=== PATIENT | male | born 1955 | race Caucasian/White ===

== ENCOUNTER 2023-07-29 13:38 | Inpatient (IN) | payer MEDICARE, MEDICAID ==
[~2023-07-29] VITALS: Ht 180.3 cm; Wt 69.5 kg
[~2023-07-29 13:38] MED LIST: ARIP15TA3 PO; FLO0.4C PO; TRIH5TAB3 PO; VILA20TA PO
--- NOTE | 2023-07-29 15:25 | NUR ---
provider at bedside.
[2023-07-29 15:27] LABS: BASOPHILS # (AUTO) 0.1 X10'3 (0-0.2); EOSINOPHILS # (AUTO) 0.1 X10'3 (0-0.9); EOSINOPHILS % (AUTO) 1.7 % (0-6); HEMATOCRIT 26.3 % (42.0-52.0); HEMOGLOBIN 8.6 g/dl (14.0-17.9); LYMPHOCYTES % (AUTO) 14.5 % (21-51); MEAN CORPUSCULAR HEMOGLOBIN 30.3 PG (27.0-31.0); MEAN CORPUSCULAR HGB CONC 32.8 g/dL (33.0-36.5); MEAN CORPUSCULAR VOLUME 92.2 FL (78-98); MEAN PLATELET VOLUME 8.3 FL (7.4-10.4); MONOCYTES # (AUTO) 0.7 X10'3 (0-0.9); MONOCYTES % (AUTO) 10.4 % (2-12); NEUTROPHILS # (AUTO) 5.1 X10'3 (1.8-7.7); NEUTROPHILS % (AUTO) 72.4 % (42-75); PLATELET COUNT 266 X10'3 (140-440); RED BLOOD COUNT 2.85 X10'6 (4.70-6.10); RED CELL DISTRIBUTION WIDTH 16.1 % (11.5-14.5)
--- NOTE | 2023-07-29 15:30 | NUR ---
pt found saturated in urine. moved to er 5 to change. pt found to have perez cath with leg bag not closed. new leg bag provided, pt placed in gown with new linens.
[2023-07-29 15:45] LABS: ALANINE AMINOTRANSFERASE 23 U/L (12-78); ALBUMIN 3.5 G/DL (3.4-5.0); ALBUMIN/GLOBULIN RATIO 1.3 (1.1-1.5); ALKALINE PHOSPHATASE 101 IU/L (46-116); ANION GAP 16 (8-16); ASPARTATE AMINO TRANSFERASE 25 U/L (10-37); BILIRUBIN,TOTAL 0.3 MG/DL (0.1-1.0); BLOOD UREA NITROGEN 103 MG/DL (7-18); CALCIUM 8.2 MG/DL (8.5-10.1); CHLORIDE 107 MMOL/L (99-107); CREATININE 6.06 MG/DL (0.60-1.10); GLUCOSE 95 MG/DL (70-104); POTASSIUM 5.1 MMOL/L (3.5-5.1); SODIUM 141 MMOL/L (135-145); TOTAL PROTEIN 6.2 G/DL (6.4-8.2); eCRCL 12 ML/MIN; eGFR 9 ML/MIN
[2023-07-29] MEDS ORDERED: normal saline 1000ML IV soln IV ONE (15:45)
[2023-07-29] MEDS ORDERED: LORazepam 1 MG tablet PO ONE (16:25)
[2023-07-29 16:56] LABS: ETHANOL < 10 MG/DL (<10); THYROID STIMULATING HORMONE 0.88 ulU/ml (0.34-4.50)
--- NOTE | 2023-07-29 17:59 | NUR ---
pt moved from [facility] 16 to er bed 13. bedside report given to brian covington. all questions answered at this time.
[2023-07-29] MEDS ORDERED: diphenhydrAMINE 50 mg/ml inj IM ONE (18:40)
[2023-07-29] MEDS ORDERED: haloperidol lactate 5mg/ml inj IM ONE (18:40)
[2023-07-29 18:57] LABS: URINE AMPHETAMINE SCREEN POSITIVE (Neg); URINE BARBITUATE SCREEN NEGATIVE (Neg); URINE BENZODIAZEPINES SCREEN NEGATIVE (Neg); URINE CANNABINOID SCREEN NEGATIVE (Neg); URINE COCAINE SCREEN NEGATIVE (Neg); URINE METHADONE SCREEN NEGATIVE (Neg); URINE OPIATE SCREEN NEGATIVE (Neg); URINE PHENCYCLIDINE SCREEN NEGATIVE (Neg)
[2023-07-29 19:04] LABS: BILIRUBIN,URINE NEGATIVE (Neg); CLARITY,URINE CLOUDY (Clear); COLOR,URINE STRAW (Yellow); GLUCOSE, URINE NEGATIVE (Neg); KETONES,URINE NEGATIVE (Neg); LEUKOCYTE ESTERASE ,URINE LARGE (Neg); NITRITES, URINE POSITIVE (Neg); OCCULT BLOOD,URINE MODERATE (Neg); PROTEIN,URINE 100 mg/dl (Neg); UROBILINOGEN,URINE 0.2 E.U/dL (0.2-1.0)
[2023-07-29 19:11] LABS: UA COLLECTION TYPE FOLEY CATH
[2023-07-29 19:13] LABS: WBC,URINE TNTC /HPF (0-4)
[2023-07-29 19:14] LABS: BACTERIA,URINE 3+ /HPF (Neg); SQUAMOUS EPITHELIAL CELL,UR FEW /LPF (FEW); TRANSITIONAL EPI CELLS,URINE MODERATE /HPF; WBC CLUMPS,URINE MODERATE /HPF (NEGATIVE)
[2023-07-29] MEDS ORDERED: CefTRIAXone 2gm/D5W 50ml BAG 50 ML IV ONE (19:40)
[2023-07-29] MEDS ORDERED: morphine 2 MG/ML inj. syringe IV PRN (21:00)
[2023-07-29] MEDS ORDERED: ondansetron/PF 4mg/2ml inj IV PRN (21:00)
[2023-07-29] MEDS ORDERED: acetaminophen 325mg tablet PO PRN ×2 (21:00)
[2023-07-29] MEDS ORDERED: magnesium 2GM in 50ml NS 50 ML IV PRN (21:00)
[2023-07-29] MEDS ORDERED: magnesium Cl slow-release 64mg tablet PO PRN (21:00)
[2023-07-29] MEDS ORDERED: potassium Cl 20 mEq SR tablet PO PRN ×2 (21:00)
[2023-07-29] MEDS ORDERED: potassium Cl 40MEQ/1/2NS 520ml 520 ML IV PRN (21:00)
[2023-07-29] MEDS ORDERED: magnesium 4gm in 100ml NS 100 ML IV PRN (21:00)
[2023-07-29] MEDS: normal saline 1000ml 1,000 ML IV SCH (21:00)
[2023-07-30] MEDS: normal saline 1000ml 1,000 ML IV SCH ×3 (04:56→22:21)
--- NOTE | 2023-07-30 06:56 | NUR ---
ASSUMED CARE. PT RESTING RISE AND FALL OF CHEST NOTED. MULTIPLE LESIONS TO L. FOOT. IMAGAES TAKEN AND PLACED IN CHART.
[2023-07-30 08:18] LABS: BASOPHILS # (AUTO) 0.1 X10'3 (0-0.2); BASOPHILS % (AUTO) 1.6 % (0-1); EOSINOPHILS # (AUTO) 0.1 X10'3 (0-0.9); EOSINOPHILS % (AUTO) 3.4 % (0-6); HEMATOCRIT 27.4 % (42.0-52.0); HEMOGLOBIN 8.8 g/dl (14.0-17.9); LYMPHOCYTES # (AUTO) 0.8 X10'3 (1.1-4.8); LYMPHOCYTES % (AUTO) 20.2 % (21-51); MEAN CORPUSCULAR HEMOGLOBIN 29.9 PG (27.0-31.0); MEAN CORPUSCULAR HGB CONC 32.2 g/dL (33.0-36.5); MEAN CORPUSCULAR VOLUME 92.6 FL (78-98); MONOCYTES # (AUTO) 0.4 X10'3 (0-0.9); MONOCYTES % (AUTO) 10.3 % (2-12); NEUTROPHILS # (AUTO) 2.6 X10'3 (1.8-7.7); NEUTROPHILS % (AUTO) 64.5 % (42-75); PLATELET COUNT 255 X10'3 (140-440); RED BLOOD COUNT 2.95 X10'6 (4.70-6.10); RED CELL DISTRIBUTION WIDTH 16.2 % (11.5-14.5); WHITE BLOOD COUNT 4.1 X10'3 (4.5-11.0)
[2023-07-30 09:15] LABS: ALANINE AMINOTRANSFERASE 30 U/L (12-78); ALBUMIN/GLOBULIN RATIO 1.1 (1.1-1.5); ALKALINE PHOSPHATASE 93 IU/L (46-116); ANION GAP 15 (8-16); ASPARTATE AMINO TRANSFERASE 31 U/L (10-37); BILIRUBIN,TOTAL 0.2 MG/DL (0.1-1.0); BLOOD UREA NITROGEN 90 MG/DL (7-18); BUN/CREATININE RATIO 15.5 (10.0-20.0); CALCIUM 7.8 MG/DL (8.5-10.1); CHLORIDE 113 MMOL/L (99-107); CREATININE 5.79 MG/DL (0.60-1.10); GLUCOSE 79 MG/DL (70-104); PHOSPHORUS 6.7 MG/DL (2.3-4.5); POTASSIUM 4.6 MMOL/L (3.5-5.1); SODIUM 145 MMOL/L (135-145); TOTAL CARBON DIOXIDE 17.1 MMOL/L (24-32); TOTAL PROTEIN 5.8 G/DL (6.4-8.2); URIC ACID 7.6 MG/DL (3.5-7.2); eCRCL 13 ML/MIN; eGFR 10 ML/MIN
[2023-07-30] MEDS: heparin, porcine 5000 units/ml vial SQ SCH ×2 (09:27→22:13)
--- NOTE | 2023-07-30 11:00 | NUR ---
Patient in room PCU 3024. I have received report from [facility] and had the opportunity to ask questions and assume patient care.
--- NOTE | 2023-07-30 12:00 | NUR ---
PATIENT MOVED FROM ER TO PCU. I ASSUMED CARE AND MADE SURE PATIENT WAS COMFORTABLE. WATER PITCHER PROVIDED. CALL LIGHT IN REACH. BLL. WHEN STARTING THE IV I NOTICED THE IV WAS LOOSE AND THE CANNULA WAS MISSING ALTHOUGH THE IV WAS STILL TAPED IN PLACE. I CALLED DR JACOBSEN AND HE ORDERED AN X RAY. X RAY SHOWED NOTHING. T/C TO ER TO INQUIRE WHAT THEY NOTICED AND THEY SAID THE IV WAS INTACT AND RUNNING NS BUT A TECH SAID SHE MAY HAVE SEEN A CANNULA ON THE FLOOR. NEW IV STARTED.
[2023-07-30 15:00] VITALS: BP 138/79; PULSE 68; RESP 14; TEMP 97.4; O2SAT 99
[2023-07-30] MEDS ORDERED: VILA40TA2 PO (17:49)
[2023-07-30] MEDS ORDERED: TRIH5TAB3 PO (17:49)
[2023-07-30] MEDS ORDERED: BUSP10TA3 PO (17:49)
[2023-07-30] MEDS ORDERED: ARIP15TA19 PO (17:49)
[2023-07-30 18:00] VITALS: BP 138/71; PULSE 62; RESP 11; TEMP 97.3; O2SAT 99
[2023-07-30 22:00] VITALS: BP 119/61; PULSE 89; RESP 16; TEMP 97.4; O2SAT 96
[2023-07-30] MEDS: azithromycin/NS 500mg/250ml 250 ML IV SCH (22:17)
[2023-07-30] MEDS: CefTRIAXone 2gm/D5W 50ml BAG 50 ML IV SCH (23:37)
[2023-07-31 02:00] VITALS: BP 138/71; PULSE 62; RESP 11; TEMP 97.3; O2SAT 99
[2023-07-31] MEDS: normal saline 1000ml 1,000 ML IV SCH ×2 (05:00→16:16)
[2023-07-31 06:00] VITALS: BP 104/84; PULSE 80; RESP 20; TEMP 97.8; O2SAT 96
--- NOTE | 2023-07-31 06:36 | NUR ---
Patient in room PCU 3024. I have received report from KENDRICK BLISS and had the opportunity to ask questions and assume patient care.
[2023-07-31 09:09] LABS: UREA NITROGEN 24HR,URINE 10.1 GM/24HR (7-20)
[2023-07-31] MEDS: CefTRIAXone 2gm/D5W 50ml BAG 50 ML IV SCH (09:13)
[2023-07-31] MEDS: heparin, porcine 5000 units/ml vial SQ SCH ×2 (09:13→20:37)
[2023-07-31 09:19] LABS: BASOPHILS # (AUTO) 0.1 X10'3 (0-0.2); EOSINOPHILS # (AUTO) 0.1 X10'3 (0-0.9); HEMATOCRIT 28.1 % (42.0-52.0); LYMPHOCYTES # (AUTO) 0.9 X10'3 (1.1-4.8); LYMPHOCYTES % (AUTO) 22.9 % (21-51); MEAN CORPUSCULAR HEMOGLOBIN 29.7 PG (27.0-31.0); MEAN CORPUSCULAR VOLUME 92.9 FL (78-98); MEAN PLATELET VOLUME 8.6 FL (7.4-10.4); MONOCYTES # (AUTO) 0.4 X10'3 (0-0.9); NEUTROPHILS # (AUTO) 2.5 X10'3 (1.8-7.7); NEUTROPHILS % (AUTO) 63.1 % (42-75); PLATELET COUNT 249 X10'3 (140-440); RED BLOOD COUNT 3.02 X10'6 (4.70-6.10); RED CELL DISTRIBUTION WIDTH 16.6 % (11.5-14.5); WHITE BLOOD COUNT 3.9 X10'3 (4.5-11.0)
[2023-07-31 10:02] LABS: ALANINE AMINOTRANSFERASE 28 U/L (12-78); ALBUMIN 2.9 G/DL (3.4-5.0); ALBUMIN/GLOBULIN RATIO 1.2 (1.1-1.5); ALKALINE PHOSPHATASE 87 IU/L (46-116); ANION GAP 13 (8-16); ASPARTATE AMINO TRANSFERASE 26 U/L (10-37); BILIRUBIN,TOTAL 0.2 MG/DL (0.1-1.0); BLOOD UREA NITROGEN 71 MG/DL (7-18); BUN/CREATININE RATIO 13.5 (10.0-20.0); CALCIUM 7.7 MG/DL (8.5-10.1); CHLORIDE 113 MMOL/L (99-107); CREATININE 5.24 MG/DL (0.60-1.10); GLUCOSE 83 MG/DL (70-104); POTASSIUM 4.8 MMOL/L (3.5-5.1); SODIUM 143 MMOL/L (135-145); TOTAL CARBON DIOXIDE 16.6 MMOL/L (24-32); TOTAL PROTEIN 5.4 G/DL (6.4-8.2); eCRCL 14 ML/MIN; eGFR 11 ML/MIN
[2023-07-31] MEDS: azithromycin/NS 500mg/250ml 250 ML IV SCH (10:25)
--- NOTE | 2023-07-31 11:05 | NUR ---
spoke with dr loyd resident re: perez cath. he states that he will attempt to find out why pt has perez and when and where placed.
[2023-07-31 12:00] VITALS: RESP 16
--- NOTE | 2023-07-31 12:20 | NUR ---
Nutrition consult re: "chronic protein malnutrition" .Pt DX acute encephalopathy possibly secondary to lobar pneumonia induced hypoxia/UTI, acute kidney injury on chronic failure stage 5 not receiving dialysis at this time, hypocalcemia, hyperuricemia, hyperphosphatemia with a hx of meth use and schizoaffective disorder per EMR. Per EMR pt presents with a left foot lesion noted wound care has been consulted; pending woc note. Current estimated wt in EMR of 75kg (165 pounds) this admit and no other wt hx in EMR. Pt not appropriate for interview at this time due to DX of acute encephalopathy thus unable to obtain food intake and wt hx SHEARING MACHINE OPERATOR. Pt seen by RD at bedside for malnutrition assessment. Pt appears thin chronically ill looking with mild muscle wasting to orbital and clavicle region as well as fat wasting in orbital region. Unable to perform a full NFPE due to pt not appropriate at this time. Due to physical observations suspect pt has been chronically prolonged time of suboptimal nutrition intake. Pending physical assessment in EMR at this time. Due to physical observations pt meets a minimum of two malnutrition criteria at this time; MD notified. Pt is currently on a renal diet with PO intake of 0% for first meal though appears to be improving 100% for second meal. Pending BM in EMR not receiving routine bowel care at this time. Will continue to monitor and make recommendations as appropriate. Recommendations: 1.continue renal diet 2.monitor PO intake and need for ONS 3.consider phos binder per physician discretion 4.routine bowel care 5.scaled wt this admit;subsequent weekly scaled wt Addendum: 07/31/23 at [address] Amended: Links added.
--- NOTE | 2023-07-31 13:45 | NUR ---
PRESSURE ULCER EDUCATION: DEFINITION: A pressure ulcer is an area of skin that breaks down when you stay in one position too long. The constant pressure against the skin reduces the blood flow to that area and the affected tissue dies. CAUSES: "Being bedridden or in a wheelchair "Fragile skin "Having a chronic condition, such as diabetes or vascular disease "Inability to move certain parts of your body without assistance "Older age "Incontinence of urine or stool SYMPTOMS: "A reddened area that DOES NOT turn white when pressed on - this can be the beginning of a pressure ulcer "A blister, deep sore or a crater - these can be advanced pressure ulcers FIRST AID: "Relieve the pressure on this area "Keep the area clean and dry "Call your primary doctor if you see any of the above symptoms "DO NOT massage the area "DO NOT use a donut shaped or ring shaped pillow- these actually interfere with the blood flow and cause complications PREVENTION: "Check for pressure ulcers everyday "Change position at least every two hours to relieve pressure "Use items that help relieve pressure- pillows, sheepskin, foam padding, and powders. "Keep skin clean and dry "Eat healthy well balanced meals "Exercise daily IF YOU SEE ANY OF THESE SYMPTOMS WHILE IN THE HOSPITAL - TELL YOUR NURSE IMMEDIATELY. IF YOU SEE ANY OF THESE SYMPTOMS WHILE AT HOME OR HAVE ANY QUESTIONS OR CONCERNS ABOUT PRESSURE ULCERS - CALL YOUR PRIMARY DOCTOR IMMEDIATELY. Addendum: 07/31/23 at 1345 by Patricia Tavarez LVN Amended: Links added.
[2023-07-31 16:00] VITALS: BP 120/68; PULSE 75; RESP 16; TEMP 98.3; O2SAT 99
--- NOTE | 2023-07-31 17:04 | NUR ---
F/u 06/30: Per [facility] note on 07/31 pt's sacrococcygeal area is intact and reddened. Both heals have intact pink and blanching skin with scattered scabbing to the left dorsal foot. Will continue to monitor. Addendum: 07/31/23 at [address] Amended: Links added.
[2023-07-31 18:00] VITALS: BP 114/63; PULSE 67; RESP 13; TEMP 98.1; O2SAT 98
--- NOTE | 2023-07-31 18:46 | NUR ---
Problems reprioritized. Patient report given, questions answered & plan of care reviewed with brisa torres.
--- NOTE | 2023-07-31 18:48 | NUR ---
Patient in room PCU 3024. I have received report from DILMA PEREIRA and had the opportunity to ask questions and assume patient care.
[2023-07-31 22:00] VITALS: BP 110/49; PULSE 72; RESP 16; TEMP 97.5; O2SAT 97
[2023-08-01] VITALS (7 sets, daily range): BP systolic 119–141; BP diastolic 56–83; PULSE 62–72; RESP 12–18; TEMP 97.1–97.7; O2SAT 96–100
[2023-08-01] MEDS: normal saline 1000ml 1,000 ML IV SCH ×4 (04:53→21:29)
--- NOTE | 2023-08-01 06:12 | NUR ---
Problems reprioritized. Patient report given, questions answered & plan of care reviewed with DILMA PEREIRA.
--- NOTE | 2023-08-01 06:28 | NUR ---
Patient in room PCU 3024. I have received report from DILMA Purcell and had the opportunity to ask questions and assume patient care.
[2023-08-01] MEDS: azithromycin/NS 500mg/250ml 250 ML IV SCH (07:29)
[2023-08-01] MEDS: heparin, porcine 5000 units/ml vial SQ SCH ×2 (07:30→19:41)
[2023-08-01 08:08] LABS: BASOPHILS # (AUTO) 0.1 X10'3 (0-0.2); BASOPHILS % (AUTO) 1.5 % (0-1); EOSINOPHILS # (AUTO) 0.1 X10'3 (0-0.9); EOSINOPHILS % (AUTO) 3.5 % (0-6); HEMATOCRIT 27.7 % (42.0-52.0); HEMOGLOBIN 8.8 g/dl (14.0-17.9); LYMPHOCYTES % (AUTO) 27.4 % (21-51); MEAN CORPUSCULAR HEMOGLOBIN 29.8 PG (27.0-31.0); MEAN CORPUSCULAR HGB CONC 31.9 g/dL (33.0-36.5); MEAN CORPUSCULAR VOLUME 93.3 FL (78-98); MEAN PLATELET VOLUME 8.2 FL (7.4-10.4); MONOCYTES # (AUTO) 0.3 X10'3 (0-0.9); MONOCYTES % (AUTO) 9.3 % (2-12); NEUTROPHILS # (AUTO) 2.1 X10'3 (1.8-7.7); NEUTROPHILS % (AUTO) 58.3 % (42-75); PLATELET COUNT 249 X10'3 (140-440); RED BLOOD COUNT 2.97 X10'6 (4.70-6.10); RED CELL DISTRIBUTION WIDTH 16.6 % (11.5-14.5); WHITE BLOOD COUNT 3.5 X10'3 (4.5-11.0)
[2023-08-01 08:29] LABS: ALANINE AMINOTRANSFERASE 22 U/L (12-78); ALBUMIN 2.8 G/DL (3.4-5.0); ALBUMIN/GLOBULIN RATIO 1.1 (1.1-1.5); ALKALINE PHOSPHATASE 81 IU/L (46-116); ANION GAP 13 (8-16); ASPARTATE AMINO TRANSFERASE 17 U/L (10-37); BILIRUBIN,TOTAL 0.2 MG/DL (0.1-1.0); BLOOD UREA NITROGEN 61 MG/DL (7-18); BUN/CREATININE RATIO 11.9 (10.0-20.0); CALCIUM 7.7 MG/DL (8.5-10.1); CHLORIDE 112 MMOL/L (99-107); CREATININE 5.14 MG/DL (0.60-1.10); GLUCOSE 79 MG/DL (70-104); POTASSIUM 4.9 MMOL/L (3.5-5.1); SODIUM 142 MMOL/L (135-145); TOTAL CARBON DIOXIDE 17.4 MMOL/L (24-32); TOTAL PROTEIN 5.3 G/DL (6.4-8.2); eCRCL 15 ML/MIN; eGFR 11 ML/MIN
[2023-08-01 08:47] LABS: TOTAL PROTEIN,URINE RANDOM 28.4 MG/DL
--- NOTE | 2023-08-01 13:00 | NUR ---
started 24 hr urine collection
--- NOTE | 2023-08-01 13:16 | NUR ---
spoke with resident dr esequiel loyd re: chris barroso. dr hagen gave a few different options as to what we should do as far as removing or not earlier in the day. dr esequiel loyd states that he is waiting to discuss with dr wilkinson.
--- NOTE | 2023-08-01 13:41 | NUR ---
Nutrition consult re: chronic malnutrition on renal diet. Patient's nutrition status has already been addressed, see previous RD note. Pt currently on a renal diet and eating well, documented with 100% PO intake of meals. Per EMR Na and K are WNL with no mag and Phos elevated 07/30 with no f/u. BUN, creatinine, and eGFR have been improving since admit. Recommend continuing with renal diet at this time. Pt does not appear appropriate for nutrition therapy education at this time given admitting dx and h/o psychosis with med noncompliance. Will continue to follow and make recommendations as appropriate. Addendum: 08/01/23 at [address] Amended: Links added.
[2023-08-01] MEDS: polyethylene glycol 3350 17gm powd pack PO SCH (14:08)
--- NOTE | 2023-08-01 14:23 | NUR ---
Bardales Catheter DC at 1417 per MD order, RN at bedside. Patient tolerated well.
--- NOTE | 2023-08-01 18:30 | NUR ---
Problems reprioritized. Patient report given, questions answered & plan of care reviewed with jonathan tobin rn.
--- NOTE | 2023-08-01 18:34 | NUR ---
Problems reprioritized. Patient report given, questions answered & plan of care reviewed with DILMA Mesa.
[2023-08-01] MEDS: ciprofloxacin 250mg tablet PO SCH (19:42)
[2023-08-01] MEDS: HYDROcodone/acetaminophen 5mg/325mg tablet PO PRN (21:23)
[2023-08-02] VITALS (9 sets, daily range): BP systolic 133–150; BP diastolic 68–85; PULSE 59–71; RESP 12–18; TEMP 97.6–98.7; O2SAT 94–100
[2023-08-02] MEDS: normal saline 1000ml 1,000 ML IV SCH ×3 (05:07→21:14)
--- NOTE | 2023-08-02 06:25 | NUR ---
Problems reprioritized. Patient report given, questions answered & plan of care reviewed with DILMA LOPEZ.
--- NOTE | 2023-08-02 06:44 | NUR ---
Patient in room PCU 3024. I have received report from ZAMZAM YADAV and had the opportunity to ask questions and assume patient care.
--- NOTE | 2023-08-02 06:50 | NUR ---
Patient in room PCU 3024. I have received report from Whitney Dcikinson RN and had the opportunity to ask questions and assume patient care.
[2023-08-02 07:35] LABS: BASOPHILS # (AUTO) 0.1 X10'3 (0-0.2); BASOPHILS % (AUTO) 1.3 % (0-1); EOSINOPHILS # (AUTO) 0.2 X10'3 (0-0.9); EOSINOPHILS % (AUTO) 3.4 % (0-6); HEMATOCRIT 29.1 % (42.0-52.0); HEMOGLOBIN 9.2 g/dl (14.0-17.9); LYMPHOCYTES # (AUTO) 1.2 X10'3 (1.1-4.8); LYMPHOCYTES % (AUTO) 25.5 % (21-51); MEAN CORPUSCULAR HEMOGLOBIN 29.6 PG (27.0-31.0); MEAN CORPUSCULAR HGB CONC 31.7 g/dL (33.0-36.5); MEAN CORPUSCULAR VOLUME 93.5 FL (78-98); MEAN PLATELET VOLUME 8.7 FL (7.4-10.4); MONOCYTES # (AUTO) 0.5 X10'3 (0-0.9); MONOCYTES % (AUTO) 9.8 % (2-12); NEUTROPHILS # (AUTO) 2.8 X10'3 (1.8-7.7); PLATELET COUNT 237 X10'3 (140-440); RED BLOOD COUNT 3.11 X10'6 (4.70-6.10); RED CELL DISTRIBUTION WIDTH 16.9 % (11.5-14.5); WHITE BLOOD COUNT 4.7 X10'3 (4.5-11.0)
[2023-08-02 07:48] LABS: ALANINE AMINOTRANSFERASE 23 U/L (12-78); ALBUMIN 2.9 G/DL (3.4-5.0); ALBUMIN/GLOBULIN RATIO 1.1 (1.1-1.5); ALKALINE PHOSPHATASE 83 IU/L (46-116); ANION GAP 12 (8-16); ASPARTATE AMINO TRANSFERASE 19 U/L (10-37); BILIRUBIN,TOTAL 0.3 MG/DL (0.1-1.0); BLOOD UREA NITROGEN 65 MG/DL (7-18); BUN/CREATININE RATIO 13.7 (10.0-20.0); CALCIUM 8.1 MG/DL (8.5-10.1); CHLORIDE 112 MMOL/L (99-107); CREATININE 4.73 MG/DL (0.60-1.10); GLUCOSE 82 MG/DL (70-104); POTASSIUM 5.3 MMOL/L (3.5-5.1); SODIUM 140 MMOL/L (135-145); TOTAL CARBON DIOXIDE 16.5 MMOL/L (24-32); TOTAL PROTEIN 5.6 G/DL (6.4-8.2); eCRCL 16 ML/MIN; eGFR 12 ML/MIN
[2023-08-02] MEDS ORDERED: trihexyphenidyl HCL 5 MG tablet PO SCH (08:00)
[2023-08-02] MEDS: azithromycin/NS 500mg/250ml 250 ML IV SCH (08:59)
[2023-08-02] MEDS: ARIPIPRAZOLE 15 MG TABLET PO SCH (08:59)
[2023-08-02] MEDS: busPIRone 5mg tablet PO SCH (08:59)
[2023-08-02] MEDS: ciprofloxacin 250mg tablet PO SCH ×2 (09:00→20:44)
[2023-08-02] MEDS: heparin, porcine 5000 units/ml vial SQ SCH ×2 (09:00→20:49)
--- NOTE | 2023-08-02 11:06 | NUR ---
BLADDER SCANNED PT 595 ML
[2023-08-02] MEDS ORDERED: sodium polystyrene sulfonate 15gm/60ml oral suspension PO ONE (11:20)
--- NOTE | 2023-08-02 18:06 | NUR ---
Student documentation: I have reviewed all interventions, assessments performed and documented by Cam FRANK. Student Medication Administration: For this medication-pass time frame, all medication were reviewed, dispensed, administered and documented per hospital policy by Cam FRANK.
--- NOTE | 2023-08-02 18:27 | NUR ---
Problems reprioritized. Patient report given, questions answered & plan of care reviewed with Brynn.
--- NOTE | 2023-08-02 18:45 | NUR ---
Patient in room PCU 3024. I have received report from Jaswinder and nursing center tutor Cam and had the opportunity to ask questions and assume patient care.
[2023-08-02] MEDS: polyethylene glycol 3350 17gm powd pack PO SCH (20:50)
[2023-08-03] VITALS (8 sets, daily range): BP systolic 131–148; BP diastolic 62–87; PULSE 55–61; RESP 11–18; TEMP 97.7–98.3; O2SAT 96–100
--- NOTE | 2023-08-03 02:50 | NUR ---
Patient had episode of incontinence. Cleaned up and bladder scanned. Scan revealed 663 in bladder. Gave patient urinal but unable to go. Straight cathed for 800cc. PVR = 43cc. Patient tolerated well.
[2023-08-03 06:13] LABS: BASOPHILS # (AUTO) 0.1 X10'3 (0-0.2); BASOPHILS % (AUTO) 1.8 % (0-1); EOSINOPHILS # (AUTO) 0.2 X10'3 (0-0.9); EOSINOPHILS % (AUTO) 4.5 % (0-6); HEMATOCRIT 26.8 % (42.0-52.0); HEMOGLOBIN 8.5 g/dl (14.0-17.9); LYMPHOCYTES # (AUTO) 1.1 X10'3 (1.1-4.8); LYMPHOCYTES % (AUTO) 26.4 % (21-51); MEAN CORPUSCULAR HEMOGLOBIN 29.9 PG (27.0-31.0); MEAN CORPUSCULAR HGB CONC 31.6 g/dL (33.0-36.5); MEAN CORPUSCULAR VOLUME 94.4 FL (78-98); MEAN PLATELET VOLUME 8.2 FL (7.4-10.4); MONOCYTES # (AUTO) 0.3 X10'3 (0-0.9); MONOCYTES % (AUTO) 7.5 % (2-12); NEUTROPHILS # (AUTO) 2.4 X10'3 (1.8-7.7); NEUTROPHILS % (AUTO) 59.8 % (42-75); PLATELET COUNT 227 X10'3 (140-440); RED BLOOD COUNT 2.84 X10'6 (4.70-6.10); RED CELL DISTRIBUTION WIDTH 16.6 % (11.5-14.5)
[2023-08-03 06:31] LABS: ALANINE AMINOTRANSFERASE 19 U/L (12-78); ALBUMIN 2.7 G/DL (3.4-5.0); ALBUMIN/GLOBULIN RATIO 1.1 (1.1-1.5); ALKALINE PHOSPHATASE 76 IU/L (46-116); ANION GAP 11 (8-16); ASPARTATE AMINO TRANSFERASE 12 U/L (10-37); BILIRUBIN,TOTAL 0.2 MG/DL (0.1-1.0); BLOOD UREA NITROGEN 62 MG/DL (7-18); BUN/CREATININE RATIO 13.5 (10.0-20.0); CHLORIDE 115 MMOL/L (99-107); CREATININE 4.58 MG/DL (0.60-1.10); GLUCOSE 85 MG/DL (70-104); POTASSIUM 4.7 MMOL/L (3.5-5.1); SODIUM 143 MMOL/L (135-145); TOTAL PROTEIN 5.1 G/DL (6.4-8.2); eCRCL 16 ML/MIN; eGFR 13 ML/MIN
--- NOTE | 2023-08-03 06:34 | NUR ---
Patient in room PCU 3024. I have received report from Brynn PERERA and had the opportunity to ask questions and assume patient care.
--- NOTE | 2023-08-03 06:45 | NUR ---
Problems reprioritized. Patient report given, questions answered & plan of care reviewed with Iván RN and Cam nursing center tutor.
--- NOTE | 2023-08-03 06:57 | NUR ---
Patient in room PCU 3024. I have received report from ОЛЕГ and had the opportunity to ask questions and assume patient care.
[2023-08-03] MEDS: azithromycin/NS 500mg/250ml 250 ML IV SCH (08:21)
[2023-08-03] MEDS: ARIPIPRAZOLE 15 MG TABLET PO SCH (08:21)
[2023-08-03] MEDS: ciprofloxacin 250mg tablet PO SCH ×2 (08:22→22:50)
[2023-08-03] MEDS: busPIRone 5mg tablet PO SCH (08:22)
[2023-08-03] MEDS: trihexyphenidyl HCL 5 MG tablet PO SCH ×2 (08:22→17:27)
[2023-08-03] MEDS: heparin, porcine 5000 units/ml vial SQ SCH ×2 (08:23→22:51)
[2023-08-03] MEDS: normal saline 1000ml 1,000 ML IV SCH ×2 (08:24→16:40)
[2023-08-03] MEDS: sevelamer carbonate 800mg tablet PO SCH ×3 (08:42→18:01)
[2023-08-03] MEDS: HYDROcodone/acetaminophen 5mg/325mg tablet PO PRN (13:33)
[2023-08-03] MEDS ORDERED: LidoCAINE 2% Topical Jelly 11mL syringe TOP ONE (13:55)
[2023-08-03] MEDS ORDERED: polyethylene glycol 3350 17gm powd pack PO PRN (17:00)
--- NOTE | 2023-08-03 18:40 | NUR ---
Patient in room PCU 3024. I have received report from faraz RN and Cam nursing specialist and had the opportunity to ask questions and assume patient care.
--- NOTE | 2023-08-03 18:50 | NUR ---
Problems reprioritized. Patient report given, questions answered & plan of care reviewed with Brynn.
[2023-08-04] VITALS (10 sets, daily range): BP systolic 135–174; BP diastolic 67–79; PULSE 49–70; RESP 10–18; TEMP 97–98.9; O2SAT 97–100
[2023-08-04] MEDS: normal saline 1000ml 1,000 ML IV SCH ×4 (00:27→23:56)
--- NOTE | 2023-08-04 06:40 | NUR ---
Patient report given to Iván RN and Cam practical nursing instructor
--- NOTE | 2023-08-04 06:52 | NUR ---
Patient in room PCU 3024. I have received report from Brynn and had the opportunity to ask questions and assume patient care.
--- NOTE | 2023-08-04 07:16 | NUR ---
Patient in room PCU 3024. I have received report from Brynn PERERA and had the opportunity to ask questions and assume patient care.
[2023-08-04] MEDS: trihexyphenidyl HCL 5 MG tablet PO SCH ×2 (07:23→17:14)
[2023-08-04] MEDS: ARIPIPRAZOLE 15 MG TABLET PO SCH (07:23)
[2023-08-04] MEDS: busPIRone 5mg tablet PO SCH (07:23)
[2023-08-04] MEDS: ciprofloxacin 250mg tablet PO SCH ×2 (07:24→19:51)
[2023-08-04] MEDS: heparin, porcine 5000 units/ml vial SQ SCH ×2 (07:24→19:53)
[2023-08-04] MEDS: sevelamer carbonate 800mg tablet PO SCH ×3 (08:20→18:18)
--- NOTE | 2023-08-04 11:23 | NUR ---
Tried to put on condom cath twice with no success. Patient is using urinal now
--- NOTE | 2023-08-04 13:09 | NUR ---
JESSICA VALERA RE: [id number] Nneka PHAM PATIENT HAS A BLADDER SCAN OF 485 AT THIS TIME WERE WE GOING TO PLACE A SIGALA OR CONTINUE TO STRAIGHT CATH? THANKS Addendum: 08/04/23 at 1309 by Anton Puente RN RECEIVED ORDERS AT THIS TIME.
[2023-08-04] MEDS ORDERED: LidoCAINE 2% Topical Jelly 11mL syringe TOP ONE (13:15)
--- NOTE | 2023-08-04 14:03 | NUR ---
PAGER ID: [phone] MESSAGE: JESSICA TELE RE: [id number] Nneka PHAM PATIENT WAS EDUCATED ON NEED OF SIGALA AND REFUSED TO HAVE IT PLACED, YOU MAY NEED TO REINFORCE THE NEED FOR THIS APPLIANCE. THANKS
--- NOTE | 2023-08-04 16:09 | NUR ---
PATIENT REFUSED SIGALA CATHETER PLACEMENT AT THIS TIME, NOTIFIED MD BUT NO NEW ORDERS. I WILL KEEP ORDER ACTIVE IN CASE PATIENT CHANGES THEIR MIND.
--- NOTE | 2023-08-04 18:29 | NUR ---
Problems reprioritized. Patient report given, questions answered & plan of care reviewed with ОЛЕГ.
--- NOTE | 2023-08-04 18:30 | NUR ---
Patient in room PCU 3024. I have received report from Iván PERERA and nursing staff development coordinator Cam and had the opportunity to ask questions and assume patient care.
[2023-08-05] VITALS (10 sets, daily range): BP systolic 116–175; BP diastolic 54–86; PULSE 52–74; RESP 10–20; TEMP 96.9–98.6; O2SAT 93–100
[2023-08-05] MEDS ORDERED: LidoCAINE 2% Topical Jelly 11mL syringe TOP ONE (00:15)
--- NOTE | 2023-08-05 01:29 | NUR ---
Patient has been using the urinal as well as having had 2 large episodes of urinary incontinents up to midnight. Bladder scan at midnight revealed over 459cc. Patient agreed for this nurse to insert indwelling perez catheter which immediately started draining some purulent drainage to bag. Patient tolerated the procedure well.
--- NOTE | 2023-08-05 06:55 | NUR ---
Patient report given to Edwin PERERA
--- NOTE | 2023-08-05 06:59 | NUR ---
Patient in room PCU 3024. I have received report from DILMA Swain and had the opportunity to ask questions and assume patient care.
[2023-08-05] MEDS: ciprofloxacin 250mg tablet PO SCH (07:23)
[2023-08-05] MEDS: ARIPIPRAZOLE 15 MG TABLET PO SCH (07:23)
[2023-08-05] MEDS: busPIRone 5mg tablet PO SCH (07:23)
[2023-08-05] MEDS: normal saline 1000ml 1,000 ML IV SCH ×2 (07:24→16:43)
[2023-08-05] MEDS: heparin, porcine 5000 units/ml vial SQ SCH ×2 (07:25→21:25)
[2023-08-05] MEDS: trihexyphenidyl HCL 5 MG tablet PO SCH ×2 (07:28→17:16)
[2023-08-05] MEDS: sevelamer carbonate 800mg tablet PO SCH ×3 (07:30→17:16)
[2023-08-05 09:15] LABS: BASOPHILS # (AUTO) 0.1 X10'3 (0-0.2); BASOPHILS % (AUTO) 1.8 % (0-1); EOSINOPHILS # (AUTO) 0.2 X10'3 (0-0.9); HEMATOCRIT 28.6 % (42.0-52.0); HEMOGLOBIN 9.1 g/dl (14.0-17.9); LYMPHOCYTES # (AUTO) 0.9 X10'3 (1.1-4.8); LYMPHOCYTES % (AUTO) 26.1 % (21-51); MEAN CORPUSCULAR HEMOGLOBIN 29.9 PG (27.0-31.0); MEAN CORPUSCULAR HGB CONC 31.7 g/dL (33.0-36.5); MEAN CORPUSCULAR VOLUME 94.4 FL (78-98); MEAN PLATELET VOLUME 8.6 FL (7.4-10.4); MONOCYTES # (AUTO) 0.2 X10'3 (0-0.9); MONOCYTES % (AUTO) 6.9 % (2-12); NEUTROPHILS % (AUTO) 60.2 % (42-75); PLATELET COUNT 202 X10'3 (140-440); RED BLOOD COUNT 3.03 X10'6 (4.70-6.10); RED CELL DISTRIBUTION WIDTH 16.6 % (11.5-14.5); WHITE BLOOD COUNT 3.3 X10'3 (4.5-11.0)
[2023-08-05 09:44] LABS: ALANINE AMINOTRANSFERASE 12 U/L (12-78); ALBUMIN 2.8 G/DL (3.4-5.0); ALBUMIN/GLOBULIN RATIO 1.1 (1.1-1.5); ALKALINE PHOSPHATASE 67 IU/L (46-116); ANION GAP 14 (8-16); ASPARTATE AMINO TRANSFERASE 10 U/L (10-37); BILIRUBIN,TOTAL 0.3 MG/DL (0.1-1.0); BLOOD UREA NITROGEN 62 MG/DL (7-18); BUN/CREATININE RATIO 14.7 (10.0-20.0); CALCIUM 8.4 MG/DL (8.5-10.1); CHLORIDE 113 MMOL/L (99-107); CREATININE 4.22 MG/DL (0.60-1.10); GLUCOSE 132 MG/DL (70-104); POTASSIUM 4.6 MMOL/L (3.5-5.1); SODIUM 143 MMOL/L (135-145); TOTAL CARBON DIOXIDE 16.2 MMOL/L (24-32); TOTAL PROTEIN 5.4 G/DL (6.4-8.2); eCRCL 18 ML/MIN; eGFR 14 ML/MIN
--- NOTE | 2023-08-05 12:53 | NUR ---
Reassessment: Pt continues eating well on renal diet, documented with 100% PO intake of meals. Noted pt has been receiving double protein TID since 08/[address] typically does not recommend double protein at this time given renal status, though renal labs appear to be improving at this time so will continue with double protein and adjust as appropriate based on renal function. A new order was put in place today for high sodium diet. Inquired with RN who states orders were per elevator adjuster. Noted pt receiving NS at 125 mL/hr with serum Na WNL. D/w RN recommendation for diet liberalization to regular as renal diet restricts electrolytes so it is contraindicated to be providing salt on current diet. LBM 08/04 per EMR. Will continue to follow. Recommendations: 1. Consider liberalizing to regular diet as pt receiving NS at 125 mL/hr with PO salt per diet order 2. Monitor renal status and need to discontinue double protein TID 3. Routine Phos binder with meals per physician; consider routine serum phos labs 4. Routine bowel care 5. Weekly scaled wts Addendum: 08/05/23 at [address] Amended: Links added.
--- NOTE | 2023-08-05 15:36 | NUR ---
Received order for consult. Met with patient for substance use and to see if patient wanted resources for treatment options. Patient wanted outpatient resources. I gave patient a list of resources, [facility] card and my card to call me with any questions.
--- NOTE | 2023-08-05 18:30 | NUR ---
Patient in room PCU 3024. I have received report from Tashi and had the opportunity to ask questions and assume patient care.
--- NOTE | 2023-08-05 18:32 | NUR ---
Problems reprioritized. Patient report given, questions answered & plan of care reviewed with RUTHY MARKS.
[2023-08-06] VITALS (11 sets, daily range): BP systolic 99–140; BP diastolic 53–70; PULSE 63–89; RESP 12–20; TEMP 97–99.3; O2SAT 92–100
[2023-08-06] MEDS: normal saline 1000ml 1,000 ML IV SCH ×3 (00:05→16:21)
[2023-08-06] MEDS: HYDROcodone/acetaminophen 5mg/325mg tablet PO PRN ×2 (07:22→19:54)
[2023-08-06] MEDS: ARIPIPRAZOLE 15 MG TABLET PO SCH (07:22)
[2023-08-06] MEDS: trihexyphenidyl HCL 5 MG tablet PO SCH ×2 (07:22→16:42)
[2023-08-06] MEDS: busPIRone 5mg tablet PO SCH (07:22)
[2023-08-06] MEDS: sevelamer carbonate 800mg tablet PO SCH ×3 (07:23→16:42)
[2023-08-06] MEDS: heparin, porcine 5000 units/ml vial SQ SCH ×2 (07:28→19:54)
[2023-08-06 09:48] LABS: BASOPHILS # (AUTO) 0.1 X10'3 (0-0.2); BASOPHILS % (AUTO) 1.3 % (0-1); EOSINOPHILS # (AUTO) 0.2 X10'3 (0-0.9); EOSINOPHILS % (AUTO) 4.2 % (0-6); HEMATOCRIT 27.1 % (42.0-52.0); HEMOGLOBIN 8.8 g/dl (14.0-17.9); LYMPHOCYTES % (AUTO) 24.9 % (21-51); MEAN CORPUSCULAR HEMOGLOBIN 30.6 PG (27.0-31.0); MEAN CORPUSCULAR HGB CONC 32.4 g/dL (33.0-36.5); MEAN CORPUSCULAR VOLUME 94.2 FL (78-98); MEAN PLATELET VOLUME 8.4 FL (7.4-10.4); MONOCYTES # (AUTO) 0.4 X10'3 (0-0.9); MONOCYTES % (AUTO) 10.4 % (2-12); NEUTROPHILS # (AUTO) 2.3 X10'3 (1.8-7.7); NEUTROPHILS % (AUTO) 59.2 % (42-75); PLATELET COUNT 236 X10'3 (140-440); RED BLOOD COUNT 2.88 X10'6 (4.70-6.10); RED CELL DISTRIBUTION WIDTH 16.7 % (11.5-14.5); WHITE BLOOD COUNT 3.9 X10'3 (4.5-11.0)
[2023-08-06 10:04] LABS: ALANINE AMINOTRANSFERASE 15 U/L (12-78); ALBUMIN 2.7 G/DL (3.4-5.0); ALKALINE PHOSPHATASE 68 IU/L (46-116); ANION GAP 12 (8-16); ASPARTATE AMINO TRANSFERASE 9 U/L (10-37); BILIRUBIN,TOTAL 0.2 MG/DL (0.1-1.0); BLOOD UREA NITROGEN 62 MG/DL (7-18); BUN/CREATININE RATIO 14.5 (10.0-20.0); CALCIUM 8.3 MG/DL (8.5-10.1); CHLORIDE 115 MMOL/L (99-107); CREATININE 4.27 MG/DL (0.60-1.10); GLUCOSE 100 MG/DL (70-104); POTASSIUM 5.1 MMOL/L (3.5-5.1); SODIUM 143 MMOL/L (135-145); TOTAL CARBON DIOXIDE 16.4 MMOL/L (24-32); TOTAL PROTEIN 5.4 G/DL (6.4-8.2); eCRCL 18 ML/MIN; eGFR 14 ML/MIN
--- NOTE | 2023-08-06 12:52 | NUR ---
attempted to call resident Andrea regarding patient's orthostatic vitals. no answer. left message to call back.
--- NOTE | 2023-08-06 14:04 | NUR ---
Received call back from Dr. العراقي. No new orders.
[2023-08-06] MEDS ORDERED: normal saline 500ml IV soln 500 ML IV ONE (14:15)
[2023-08-06] MEDS ORDERED: meclizine 12.5mg tablet PO PRN (15:00)
[2023-08-07] MEDS: normal saline 1000ml 1,000 ML IV SCH ×2 (00:12→07:23)
[2023-08-07 03:24] VITALS: BP 119/78; PULSE 69; RESP 19; TEMP 97.8; O2SAT 92
--- NOTE | 2023-08-07 06:19 | NUR ---
Problems reprioritized. Patient report given, questions answered & plan of care reviewed with DILMA Hamlin.
--- NOTE | 2023-08-07 06:33 | NUR ---
Patient in room PCU 3024. I have received report from syeda torres and had the opportunity to ask questions and assume patient care.
[2023-08-07] MEDS: trihexyphenidyl HCL 5 MG tablet PO SCH ×2 (07:22→17:26)
[2023-08-07] MEDS: ARIPIPRAZOLE 15 MG TABLET PO SCH (07:22)
[2023-08-07] MEDS: sevelamer carbonate 800mg tablet PO SCH ×3 (07:22→17:26)
[2023-08-07] MEDS: busPIRone 5mg tablet PO SCH (07:22)
[2023-08-07] MEDS: heparin, porcine 5000 units/ml vial SQ SCH ×2 (07:23→20:16)
[2023-08-07 07:39] VITALS: BP 132/66; PULSE 61; RESP 13; TEMP 97.6; O2SAT 100
[2023-08-07 09:23] LABS: BASOPHILS % (AUTO) 1.1 % (0-1); EOSINOPHILS # (AUTO) 0.2 X10'3 (0-0.9); EOSINOPHILS % (AUTO) 4.2 % (0-6); HEMATOCRIT 26.4 % (42.0-52.0); HEMOGLOBIN 8.4 g/dl (14.0-17.9); LYMPHOCYTES # (AUTO) 1.2 X10'3 (1.1-4.8); LYMPHOCYTES % (AUTO) 30.2 % (21-51); MEAN CORPUSCULAR HEMOGLOBIN 30.2 PG (27.0-31.0); MEAN CORPUSCULAR HGB CONC 31.8 g/dL (33.0-36.5); MEAN CORPUSCULAR VOLUME 95.1 FL (78-98); MEAN PLATELET VOLUME 8.9 FL (7.4-10.4); MONOCYTES # (AUTO) 0.4 X10'3 (0-0.9); MONOCYTES % (AUTO) 10.6 % (2-12); NEUTROPHILS # (AUTO) 2.2 X10'3 (1.8-7.7); NEUTROPHILS % (AUTO) 53.9 % (42-75); PLATELET COUNT 226 X10'3 (140-440); RED BLOOD COUNT 2.78 X10'6 (4.70-6.10); RED CELL DISTRIBUTION WIDTH 17.1 % (11.5-14.5)
--- NOTE | 2023-08-07 09:39 | NUR ---
PAGED DR. LIANG REGARDING DISCHARGE ORDERS FOR PATIENT. PATIENT NEEDS TO BE AT [facility] BY 1015 FOR BUS RIDE AND NO ORDERS FOR DISCHARGE ARE PUT IN. PAGER ID: [phone] MESSAGE: [id number]. JOSE PHAM. DISCHARGE ORDER NEEDED TO GET PATIENT TO [facility] ON TIME. THANK YOU.
[2023-08-07 10:12] LABS: ALANINE AMINOTRANSFERASE 14 U/L (12-78); ALBUMIN 2.7 G/DL (3.4-5.0); ALKALINE PHOSPHATASE 75 IU/L (46-116); ANION GAP 12 (8-16); ASPARTATE AMINO TRANSFERASE 8 U/L (10-37); BILIRUBIN,TOTAL 0.2 MG/DL (0.1-1.0); BLOOD UREA NITROGEN 67 MG/DL (7-18); BUN/CREATININE RATIO 15.9 (10.0-20.0); CALCIUM 8.1 MG/DL (8.5-10.1); CHLORIDE 114 MMOL/L (99-107); CREATININE 4.21 MG/DL (0.60-1.10); GLUCOSE 111 MG/DL (70-104); POTASSIUM 5.6 MMOL/L (3.5-5.1); SODIUM 141 MMOL/L (135-145); TOTAL CARBON DIOXIDE 15.1 MMOL/L (24-32); TOTAL PROTEIN 5.3 G/DL (6.4-8.2); eCRCL 17 ML/MIN; eGFR 14 ML/MIN
[2023-08-07 11:00] VITALS: BP 129/65; PULSE 72; RESP 18; TEMP 97.9; O2SAT 99
[2023-08-07] MEDS: sodium bicarbonate 650mg tablet PO SCH ×2 (14:58→22:27)
[2023-08-07 15:00] VITALS: BP_SYST 110; BP_SYST 130; BP_SYST 140; BP_DIAS 53; BP_DIAS 72; BP_DIAS 74; PULSE 101; PULSE 70; PULSE 87; RESP 14; TEMP 97.8; O2SAT 100
[2023-08-07] MEDS ORDERED: sodium bicarbonate (8.4%) inj. 150 MEQ in dextrose 5%-water 1,000 ML IV SCH (15:20)
--- NOTE | 2023-08-07 15:30 | NUR ---
spoke with dr loyd re: discharge is not complete, he states he will be back to complete after lecture
[2023-08-07] MEDS ORDERED: SEVE800T8 PO (16:54)
[2023-08-07] MEDS ORDERED: sodium bicarbonate tablet PO (16:54)
[2023-08-07] MEDS ORDERED: ONDA4TAB12 PO (16:54)
[2023-08-07] MEDS ORDERED: polyethylene glycol 3350 pkt PO (16:54)
[2023-08-07] MEDS ORDERED: MECL-226 PO (16:54)
[2023-08-07 18:00] VITALS: BP 132/71; PULSE 65; RESP 16; TEMP 97.7; O2SAT 99
--- NOTE | 2023-08-07 18:27 | NUR ---
Patient in room PCU 3023. I have received report from oliver torres and had the opportunity to ask questions and assume patient care.
[2023-08-07] MEDS: SODIUM ZIRCONIUM CYCLOSILICATE 10 GM POWD.PACK PO SCH (20:15)
[2023-08-07] MEDS ORDERED: SODIUM ZIRCONIUM CYCLOSILICATE 10 GM POWD.PACK PO SCH (21:00)
[2023-08-07 22:42] VITALS: BP 135/67; PULSE 68; RESP 19; TEMP 98.3; O2SAT 97
[2023-08-08 03:03] VITALS: BP 132/71; PULSE 73; RESP 19; TEMP 97.4; O2SAT 98
--- NOTE | 2023-08-08 03:21 | NUR ---
Problems reprioritized. Patient report given, questions answered & plan of care reviewed with lisseth hidalgo.
[2023-08-08 06:57] VITALS: BP 141/68; PULSE 65; RESP 15; TEMP 97.9; O2SAT 99
[2023-08-08] MEDS: sevelamer carbonate 800mg tablet PO SCH (07:09)
[2023-08-08] MEDS: SODIUM ZIRCONIUM CYCLOSILICATE 10 GM POWD.PACK PO SCH (07:09)
[2023-08-08] MEDS: sodium bicarbonate 650mg tablet PO SCH (07:10)
[2023-08-08] MEDS: ARIPIPRAZOLE 15 MG TABLET PO SCH (07:10)
[2023-08-08] MEDS: busPIRone 5mg tablet PO SCH (07:10)
[2023-08-08] MEDS: heparin, porcine 5000 units/ml vial SQ SCH (07:11)
[2023-08-08] MEDS: trihexyphenidyl HCL 5 MG tablet PO SCH (07:12)
[2023-08-08 07:54] LABS: BASOPHILS # (AUTO) 0.1 X10'3 (0-0.2); BASOPHILS % (AUTO) 1.4 % (0-1); EOSINOPHILS # (AUTO) 0.2 X10'3 (0-0.9); EOSINOPHILS % (AUTO) 4.5 % (0-6); HEMATOCRIT 25.9 % (42.0-52.0); HEMOGLOBIN 8.4 g/dl (14.0-17.9); LYMPHOCYTES # (AUTO) 1.1 X10'3 (1.1-4.8); LYMPHOCYTES % (AUTO) 28.3 % (21-51); MEAN CORPUSCULAR HEMOGLOBIN 30.1 PG (27.0-31.0); MEAN CORPUSCULAR HGB CONC 32.4 g/dL (33.0-36.5); MEAN PLATELET VOLUME 8.5 FL (7.4-10.4); MONOCYTES # (AUTO) 0.4 X10'3 (0-0.9); MONOCYTES % (AUTO) 11.5 % (2-12); NEUTROPHILS # (AUTO) 2.1 X10'3 (1.8-7.7); NEUTROPHILS % (AUTO) 54.3 % (42-75); PLATELET COUNT 258 X10'3 (140-440); RED BLOOD COUNT 2.78 X10'6 (4.70-6.10); RED CELL DISTRIBUTION WIDTH 16.8 % (11.5-14.5); WHITE BLOOD COUNT 3.8 X10'3 (4.5-11.0)
[2023-08-08 08:17] LABS: ALANINE AMINOTRANSFERASE 11 U/L (12-78); ALBUMIN 2.7 G/DL (3.4-5.0); ALKALINE PHOSPHATASE 71 IU/L (46-116); ANION GAP 8 (8-16); ASPARTATE AMINO TRANSFERASE 8 U/L (10-37); BILIRUBIN,TOTAL 0.2 MG/DL (0.1-1.0); BLOOD UREA NITROGEN 75 MG/DL (7-18); BUN/CREATININE RATIO 16.5 (10.0-20.0); CALCIUM 8.5 MG/DL (8.5-10.1); CHLORIDE 111 MMOL/L (99-107); CREATININE 4.55 MG/DL (0.60-1.10); GLUCOSE 88 MG/DL (70-104); POTASSIUM 5.5 MMOL/L (3.5-5.1); SODIUM 139 MMOL/L (135-145); TOTAL CARBON DIOXIDE 20.1 MMOL/L (24-32); TOTAL PROTEIN 5.4 G/DL (6.4-8.2); eCRCL 15 ML/MIN; eGFR 13 ML/MIN
--- NOTE | 2023-08-08 10:00 | NUR ---
Patient changed into clean sweat outfit and given new shoes. discharged back to [place] where a county worker will pick him up and drive him to his home and machine pecan picker his medications. Patient catheter in place. all paper work and education provided to patient. sticky notes of reminders given to patient as well incase he forgets what the plan is while he travels on a bus to [facility]. Patient left by wheelchair and transported to bus stop by [employer].
--- NOTE | 2023-08-08 13:11 | NUR ---
ORDERING BOX OPERATOR documentation: I have reviewed and agree with all interventions, assessments performed and documented by RUTHY Leon.
== END 2023-08-08 10:47 | disposition home or self-care (01) | DRG 698 ==
LOC: ER 13:39 → ED HOLD 20:56 → PCU 3S 07-30 11:01
PROVIDERS: ADMIT Internal Medicine; ATTEND Family Medicine
DX: T83.518A Infection and inflammatory reaction due to other urinary catheter, initial encounter (principal); G93.41 Metabolic encephalopathy; J18.1 Lobar pneumonia, unspecified organism; N18.6 End stage renal disease; E46 Unspecified protein-calorie malnutrition; J44.0 Chronic obstructive pulmonary disease with (acute) lower respiratory infection; N17.9 Acute kidney failure, unspecified; E87.29 Other acidosis; N13.6 Pyonephrosis; L03.116 Cellulitis of left lower limb; N18.4 Chronic kidney disease, stage 4 (severe); F25.9 Schizoaffective disorder, unspecified; F32.A Depression, unspecified; F41.9 Anxiety disorder, unspecified; I95.1 Orthostatic hypotension; B96.5 Pseudomonas (aeruginosa) (mallei) (pseudomallei) as the cause of diseases classified elsewhere; R09.02 Hypoxemia; E83.51 Hypocalcemia; E79.0 Hyperuricemia without signs of inflammatory arthritis and tophaceous disease; E83.39 Other disorders of phosphorus metabolism; E87.5 Hyperkalemia; I12.9 Hypertensive chronic kidney disease with stage 1 through stage 4 chronic kidney disease, or unspecified chronic kidney disease; Y84.6 Urinary catheterization as the cause of abnormal reaction of the patient, or of later complication, without mention of misadventure at the time of the procedure; F15.10 Other stimulant abuse, uncomplicated; D63.1 Anemia in chronic kidney disease; E87.8 Other disorders of electrolyte and fluid balance, not elsewhere classified; R59.0 Localized enlarged lymph nodes; N40.0 Benign prostatic hyperplasia without lower urinary tract symptoms; E03.9 Hypothyroidism, unspecified; N28.1 Cyst of kidney, acquired; T43.96XA Underdosing of unspecified psychotropic drug, initial encounter; Y92.89 Other specified places as the place of occurrence of the external cause; Z86.718 Personal history of other venous thrombosis and embolism; Z79.899 Other long term (current) drug therapy; Z87.891 Personal history of nicotine dependence; Z91.148 Patient's other noncompliance with medication regimen for other reason; Z68.21 Body mass index [BMI] 21.0-21.9, adult; Z79.01 Long term (current) use of anticoagulants
CPT/HCPCS: 36415; 70450; 71045; 73090; 73630; 74176; 76770; 80053; 80305; 80320; 81001; 82570; 83935; 84100; 84133; 84145; 84156; 84300; 84443; 84540; 84550; 84560; 85025; 87077; 87088; 87186; 96365; 96372; 97161; 97530; 99285; A4314; A4349; A5200; A6212; A6213; A6250; A6449; C1758; G0378; J0456; J0696; J1200; J1630; J1644; J2405; J3490; J7030; J7040; J7070